=== PATIENT | female | born 1960 | race Caucasian/White ===

== ENCOUNTER 2022-08-20 23:28 | Emergency (ER) | payer MEDICAID ==
[2022-08-20] MEDS ORDERED: Labetalol 20 MG/4 ML Syringe IVPUSH ONE (23:46)
[2022-08-20 23:55] LABS: ESTIMATED GFR 63 mL/min (>60)
== END 2022-08-21 01:30 | disposition home or self-care (01) ==
LOC: FB.ED 23:28
DX: I16.0 Hypertensive urgency (principal); Z91.012 Allergy to eggs
CPT/HCPCS: 36415; 80053; 85025; 93005; 93010; 96374; 99283; 99284-25; J3490